=== PATIENT | male | born 1990 | race African-American/Black ===

== ENCOUNTER 2024-02-23 00:18 | Emergency (ER) | payer OTHER ==
[~2024-02-23] VITALS: Ht 167.6 cm; Wt 93.3 kg
[2024-02-23 00:22] VITALS: TEMP 97.6
[2024-02-23 00:51] VITALS: BP 140/88; O2SAT 98
[2024-02-23] MEDS ORDERED: ONDANSETRON 4MG ORAL DISINTEGRATING TAB PO ONE (01:40)
[2024-02-23] MEDS: FAMOTIDINE 20 MG TAB PO ONE (01:45)
[2024-02-23] MEDS ORDERED: PEPC1TAB5 PO (01:49)
== END 2024-02-23 01:56 | disposition home or self-care (01) ==
LOC: M ED 00:18
DX: K92.0 Hematemesis (principal); Z79.899 Other long term (current) drug therapy; Z87.891 Personal history of nicotine dependence